=== PATIENT | female | born 1940 | race Two or more races ===

== ENCOUNTER → 2016-05-03 | Outpatient (CLI) | payer MEDICARE, OTHER ==
[~2016-05-03] MED LIST: ACET500C5 PO; ACYC800T57 PO; AMLO5TAB4 PO; ASPI325T32 PO; CLIN-73 PO; DOCU-144 PO; FENO48TA PO; HYDR-902 PO; HYDR-905 PO; IBUP400T22 PO; LISI20TA11 PO; LYRI25 PO; MELO-109 PO; METF500T4 PO; MUPI22OI2 TOP; PANT40TA4 PO; RANI150T5 PO; TRAM50TA2 PO
--- NOTE | 2016-05-03 10:37 | RADRPT ---
PROCEDURE: Limited x-ray of both lower extremities. CLINICAL INDICATION: Bilateral leg pain. TECHNIQUE: Single frontal view of both lower extremities was obtained from the hips to the calves. COMPARISON: None. FINDINGS: There are mild degenerative changes of the hips with osteophytes noted. There are moderate degenera tive changes of both knees with osteophytes and bilateral medial joint compartment narrowing. IMPRESSION: 1. Mild degenerative changes of the hips. 2. Moderate degenerative changes of the knees. RPTAT: QQ .Ronnie Garcia MD, MD Date Time Electronically viewed and signed by .Ronnie Garcia MD, on 05/03/2016 10:37 .R/
== END | disposition home or self-care (01) ==
LOC: HKI 08:56
PROVIDERS: ATTEND Orthopaedic Surgery
DX: Z01.818 Encounter for other preprocedural examination (principal); M17.0 Bilateral primary osteoarthritis of knee
CPT/HCPCS: 77073; G0463

== ENCOUNTER → 2016-05-17 | Outpatient (CLI) | payer MEDICARE, OTHER ==
[~2016-05-17] MED LIST changes: -ACET500C5 PO; -ACYC800T57 PO; -AMLO5TAB4 PO; -CLIN-73 PO; -DOCU-144 PO; -FENO48TA PO; -HYDR-902 PO; -IBUP400T22 PO; -MELO-109 PO; -MUPI22OI2 TOP; -RANI150T5 PO
--- NOTE | 2016-05-17 11:49 | RADRPT ---
PROCEDURE: XR right knee. CLINICAL INDICATION: Knee pain. TECHNIQUE: AP and lateral weightbearing views are available for review. COMPARISON: 05/07/2016 FINDINGS: There is a total knee replacement. There is no evidence of loosening of the prosthesis. The osseous structures are normal in mineralization, architecture and alignment No acute fracture or dislocation is seen.No osseous lesions are identified. The soft tissues are unremarkable . IMPRESSION: Unremarkable total knee replacement. RPTAT: HGDB .Oscar Gomez MD, MD Date Time Electronically viewed and signed by .Oscar Gomez MD, MD on 05/17/2016 11:49 .B/
== END | disposition home or self-care (01) ==
LOC: HKI 10:05
PROVIDERS: ATTEND Orthopaedic Surgery
DX: Z47.1 Aftercare following joint replacement surgery (principal); Z96.651 Presence of right artificial knee joint
CPT/HCPCS: 73560; G0463

== ENCOUNTER → 2016-06-12 | Outpatient (CLI) | payer MEDICARE, OTHER | END | disposition home or self-care (01) | LOC: HKI 10:09 | PROVIDERS: ATTEND Orthopaedic Surgery | DX: Z47.1 Aftercare following joint replacement surgery (principal); M17.11 Unilateral primary osteoarthritis, right knee; Z96.651 Presence of right artificial knee joint | CPT/HCPCS: G0463 ==

== ENCOUNTER → 2016-08-21 | Outpatient (CLI) | payer MEDICARE, OTHER ==
--- NOTE | 2016-08-21 11:00 | RADRPT ---
PROCEDURE: XR right knee. CLINICAL INDICATION: Knee pain. TECHNIQUE: AP weightbearing, lateral weightbearing and sunrise views are available for review. COMPARISON: 05/17/2016 FINDINGS: There is a total knee replacement. There is no evidence of loosening of the prosthesis. There is no evidence of hardware failure. The osseous structures are normal in mineralization, architecture and alignment No acute fracture or dislocation is seen.No osseous lesions are identified. The soft tiss ues are unremarkable . IMPRESSION: Unremarkable total knee replacement. RPTAT: HGDB .Oscar Gomez MD, MD Date Time Electronically viewed and signed by .Oscar Gomez MD, MD on 08/21/2016 10:59 .B/
== END | disposition home or self-care (01) ==
LOC: HKI 10:08
PROVIDERS: ATTEND Orthopaedic Surgery
DX: Z09 Encounter for follow-up examination after completed treatment for conditions other than malignant neoplasm (principal); Z96.651 Presence of right artificial knee joint; M17.12 Unilateral primary osteoarthritis, left knee
CPT/HCPCS: G0463

== ENCOUNTER 2018-09-06 10:27 | Emergency (ER) | payer MEDICARE, OTHER ==
[~2018-09-06] VITALS: Wt 60.0 kg
[~2018-09-06 10:27] MED LIST changes: +HYDR-4012 PO; -HYDR-905 PO; +LISI-471 PO; -LISI20TA11 PO; +METF-849 PO; -METF500T4 PO
[2018-09-06] MEDS ORDERED: LISI-471 PO (11:28)
[2018-09-06] MEDS ORDERED: ALBUTEROL 0.083% (NEB) 2.5 MG/3 ML AMP HHN STA (11:28)
[2018-09-06] MEDS ORDERED: SODIUM CHLORIDE 0.9% 1L BAG IV* STA (11:28)
[2018-09-06] MEDS ORDERED: METF500T24 PO (11:29)
[2018-09-06] MEDS ORDERED: ATOR20TA38 PO (11:29)
[2018-09-06] MEDS ORDERED: ERGO500013 PO (11:30)
[2018-09-06] MEDS ORDERED: CEFTRIAXONE 1 GM/50 ML (PMX) 50 ML IVPB ONE (11:30)
[2018-09-06] MEDS ORDERED: IPRATROPIUM (NEB) 0.5 MG/2.5 ML AMP HHN ONE (11:30)
[2018-09-06] MEDS ORDERED: RANI150T5 PO (11:30)
[2018-09-06] MEDS ORDERED: AZITHROMYCIN 500MG/NS (PMX) 250 ML IVPB ONE (11:30)
[2018-09-06] MEDS ORDERED: ACETAMINOPHEN 325 MG TAB PO ONE (13:30)
[2018-09-06] MEDS ORDERED: BENZONATATE 100 MG CAP PO ONE (13:30)
[2018-09-06 13:57] VITALS: BP 158/73; PULSE 66; RESP 16
[2018-09-06] MEDS ORDERED: CEPH-443 PO (14:05)
[2018-09-06] MEDS ORDERED: BENZ-6 PO (14:05)
--- NOTE | 2018-09-06 15:06 | ERD ---
ER Documentation Chief Complaint Chief Complaint cough x 4 days HPI Patient is a 78-year-old female with GERD and hypertension who presents with a cough. She has had a persistent cough since . The cough is worse. The patient feels weak all over. The patient has rib pain but no fevers. The patient tried TheraFlu and DayQuil. The patient does have a primary doctor. ROS All systems reviewed and are negative except as per history of present illness. Medications Home Meds Active Scripts Benzonatate* (Tessalon Perle*) 100 Mg Capsule, 100 MG PO TID, #30 CAP Prov:ROMANA CINTRON MD 09/06/18 Cephalexin* (Keflex*) 500 Mg Capsule, 500 MG PO BID for 7 Days, CAP Prov:ROMANA CINTRON MD 09/06/18 Reported Medications Ranitidine Hcl* (Ranitidine Hcl*) 150 Mg Tablet, 150 MG PO HS, #30 TAB 09/06/18 Ergocalciferol (Vitamin D2) (VITAMIN D2) 50,000 Unit Capsule, 34856 UNIT PO Q SUN, CAP 09/06/18 Atorvastatin Calcium* (Atorvastatin Calcium*) 20 Mg Tablet, 20 MG PO QHS, #30 TAB 09/06/18 Metformin Hcl* (Metformin Hcl*) 500 Mg Tablet, 500 MG PO WITH BREAKFAST, #30 TAB 09/06/18 Lisinopril* (Lisinopril*) 20 Mg Tablet, 20 MG PO DAILY, #30 TAB 09/06/18 Discontinued Reported Medications Metformin* (Glucophage*) 500 Mg Tab, 500 MG PO DAILY, #30 TAB 05/07/16 Lisinopril* (Lisinopril*) 20 Mg Tablet, 20 MG PO DAILY, #30 TAB 05/07/16 Discontinued Scripts Hydrocodone/Acetaminophen ([place] 7.5-325 Tablet) 1 Each Tablet, 1 EACH PO Q6 PRN for PAIN LEVEL 6-10, #60 TAB Prov:LEIGHTON PLATT PA-C 05/08/16 Pantoprazole* (Pantoprazole*) 40 Mg Tablet.dr, 40 MG PO BID@06,18 for 30 Days, #60 Prov:LEIGHTON PLATT PA-C 05/08/16 Pregabalin* (Lyrica*) 25 Mg Capsule, 50 MG PO BID for 30 Days, #60 CAP Prov:LEIGHTON PLATT PA-C 05/08/16 Tramadol HCl (Tramadol HCl) 50 Mg Tablet, 50 MG PO Q6 for 30 Days, #60 TAB Prov:LEIGHTON PLATT PA-C 05/08/16 Aspirin (Aspir-Arianna) 325 Mg Tablet.dr, 325 MG PO BID for 42 Days, #84 Prov:LEIGHTON PLATT PA-C 05/08/16 Allergies Allergies: Coded Allergies: No Known Drug Allergies (Verified Allergy, Unknown, 09/06/18) PMhx/Soc History of Surgery: Yes (KNEE, HERNIA X3, RECTAL, BETAHNY, UTERUS, EYE) Anesthesia Reaction: No Hx Neurological Disorder: No Hx Respiratory Disorders: No Hx Cardiac Disorders: Yes (HTN,HLD) Hx Psychiatric Problems: No Hx Miscellaneous Medical Probl: Yes (DM2, HTN, UTI) Hx Alcohol Use: No Hx Substance Use: No Hx Tobacco Use: No Smoking Status: Never smoker FmHx Family History: diabetes Physical Exam Vitals Vital Signs Date Temp Pulse Resp B/P (MAP) Pulse Ox O2 O2 Flow FiO2 Time Delivery Rate 09/06/18 99.0 66 16 158/73 98 Room Air 13:57 (101) 09/06/18 97.8 76 18 184/85 99 10:30 (118) Physical Exam Const: No acute distress Head: Atraumatic Eyes: Normal Conjunctiva ENT: Normal External Ears, Nose and Mouth. Neck: Full range of motion. No meningismus. Resp: Clear to auscultation bilaterally Cardio: Regular rate and rhythm, no murmurs Abd: Soft, non tender, non distended. Normal bowel sounds Skin: No petechiae or rashes Back: No midline or flank tenderness Ext: No cyanosis, or edema Neur: Awake and alert Psych: Normal Mood and Affect Result Diagram: 09/06/18 1140 09/06/18 1140 Results 24 hrs Laboratory Tests Test 09/06/18 11:29 09/06/18 11:40 09/06/18 11:45 Urine Color YELLOW Urine Clarity SLIGHTLY CLOUDY Urine pH 6.0 Urine Specific [place] 1.010 Urine Ketones NEGATIVE mg/dL Urine Nitrite POSITIVE mg/dL Urine Bilirubin NEGATIVE mg/dL Urine Urobilinogen 1+ mg/dL Urine Leukocyte Esterase 1+ Andrey/ul Urine Microscopic RBC 1 /HPF Urine Microscopic WBC 46 /HPF Urine Hemoglobin NEGATIVE mg/dL Urine Glucose NEGATIVE mg/dL Urine Total Protein NEGATIVE mg/dl White Blood Count 6.0 10^3/ul Red Blood Count 3.96 10^6/ul Hemoglobin 9.8 g/dl Hematocrit 32.2 % Mean Corpuscular Volume 81.3 fl Mean Corpuscular Hemoglobin 24.7 pg Mean Corpuscular 30.4 g/dl Hemoglobin Concent Red Cell Distribution Width 17.7 % Platelet Count 348 10^3/UL Mean Platelet Volume 9.3 fl Immature Granulocytes % 0.300 % Neutrophils % 66.5 % Lymphocytes % 14.2 % Monocytes % 10.5 % Eosinophils % 7.8 % Basophils % 0.7 % Nucleated Red Blood Cells % 0.0 /100WBC Immature Granulocytes # 0.020 10^3/ul Neutrophils # 4.0 10^3/ul Lymphocytes # 0.9 10^3/ul Monocytes # 0.6 10^3/ul Eosinophils # 0.5 10^3/ul Basophils # 0.0 10^3/ul Nucleated Red Blood Cells # 0.0 10^3/ul Prothrombin Time 14.6 Sec Prothrombin Time Ratio 1.1 INR International 1.13 Normalized Ratio Activated Partial Thromboplast 29.8 Sec Time Sodium Level 142 mmol/L Potassium Level 3.9 mmol/L Chloride Level 106 mmol/L Carbon Dioxide Level 29 mmol/L Anion Gap 7 Blood Urea Nitrogen 11 mg/dl Creatinine 0.63 mg/dl Est Glomerular Filtrat mL/min Rate mL/min Glucose Level 113 mg/dl Calcium Level 9.0 mg/dl Total Bilirubin 0.5 mg/dl Direct Bilirubin 0.00 mg/dl Indirect Bilirubin 0.5 mg/dl Aspartate Amino Transf (AST/SGOT) 32 IU/L Alanine 22 IU/L Aminotransferase (ALT/SGPT) Alkaline Phosphatase 87 IU/L Troponin I < 0.012 ng/ml Total Protein 7.0 g/dl Albumin 3.9 g/dl Globulin 3.10 g/dl Albumin/Globulin Ratio 1.25 POC Venous Lactate 0.9 mmol/L Current Medications Medications Dose Sig/Shanika Start Time Status Last (Trade) Ordered Route PRN Stop Time Admin Dose Reason Admin Sodium 1,800 ml BOLUS OVER 2 09/06/18 DC 09/06/18 Chloride HOURS STAT 11:28 09/06/18 11:41 (NS) IV* 11:31 Albuterol 5 mg ONCE STAT 09/06/18 DC 09/06/18 (Proventil HHN 11:28 09/06/18 12:55 0.083% (Neb)) 11:31 Ipratropium 0.5 mg ONCE ONCE 09/06/18 DC 09/06/18 [place] HHN 11:30 09/06/18 12:54 (Atrovent 11:31 0.02% (Neb)) Ceftriaxone 50 ml @ ONCE ONCE 09/06/18 DC 09/06/18 Sodium 100 mls/hr IVPB 11:30 09/06/18 11:42 11:59 Azithromycin 250 ml @ ONCE ONCE 09/06/18 DC 09/06/18 250 mls/hr IVPB 11:30 09/06/18 12:04 12:29 Benzonatate 200 mg ONCE ONCE 09/06/18 DC 09/06/18 (Tessalon) PO 13:30 09/06/18 13:25 13:31 650 mg ONCE ONCE 09/06/18 DC 09/06/18 Acetaminophen PO 13:30 09/06/18 13:25 (Tylenol 13:31 Tab) Procedures/MDM EKG read by me: Rate/Rhythm: Regular rate and rhythm at a normal rate Intervals: Normal Impression: No evidence of ischemia or arrhythmia Chest x-ray negative for pneumonia or pneumothorax per radiology. Patient is a 78-year-old female who presents with cough. Laboratory studies were done and patient was found to have acute cystitis. Chest x-ray was negative for pneumonia or pneumothorax. At this point I doubt acute coronary syndrome, pneumonia, pneumothorax, pulmonary embolism, or aortic dissection. I would like to have admitted the patient for IV antibiotics for cystitis and the patient had been given ceftriaxone and Zithromax empirically. However she does not want to stay in the hospital and would prefer to go home at this time. She is ambulating on her own. She will be discharged with a prescription for Keflex and Tessalon. She will need to follow-up closely with her primary doctor within 24 to 48 hours. She can return for any worsening symptoms. Departure Diagnosis: Primary Impression: Cough Additional Impression: Urinary tract infection Urinary tract infection type: acute cystitis Hematuria presence: without hematuria Qualified Codes: N30.00 - Acute cystitis without hematuria Condition: Fair Patient Instructions: Understanding Urinary Tract Infections (UTIs), Cough, Chronic, Uncertain Cause, (Adult) Referrals: ASHOK HUSSEIN MD (PCP) Additional Instructions: Call your primary care doctor TOMORROW for an appointment during the next 1-2 days.See the doctor sooner or return here if your condition worsens before your appointment time. ROMANA CINTRON MD Sep 06, 2018 15:06
== END 2018-09-06 13:57 | disposition home or self-care (01) ==
LOC: E/R 10:27
DX: R05 Cough (principal); I10 Essential (primary) hypertension; E11.9 Type 2 diabetes mellitus without complications; N30.00 Acute cystitis without hematuria; R07.89 Other chest pain; Z79.82 Long term (current) use of aspirin; Z79.84 Long term (current) use of oral hypoglycemic drugs
CPT/HCPCS: 36415; 71045; 80053; 81001; 83605; 84484; 85025; 85610; 85730; 87040; 87086; 93005; 96374; 96375; 99285; J0456; J0696; J7030

== ENCOUNTER 2018-12-07 22:15 | Emergency (ER) | payer MEDICARE, OTHER ==
[~2018-12-07] VITALS: Ht 152.4 cm; Wt 57.0 kg
[~2018-12-07 22:15] MED LIST changes: -ASPI325T32 PO; +ATOR20TA38 PO; +BENZ-6 PO; +CEPH-443 PO; +CYCL10TA7 PO; +ERGO500013 PO; -HYDR-4012 PO; +IBUP-1561 PO; -LYRI25 PO; -METF-849 PO; +METF500T24 PO; -PANT40TA4 PO; +RANI150T5 PO; -TRAM50TA2 PO
[2018-12-07 22:26] VITALS: BP 148/76; PULSE 84; RESP 18; Ht 152.4 cm; Wt 57.0 kg
[2018-12-07] MEDS ORDERED: KETOROLAC 30 MG INJ IM STA (23:59)
[2018-12-08] MEDS ORDERED: DIAZEPAM 5 MG TAB PO ONE
== END 2018-12-08 01:55 | disposition home or self-care (01) ==
LOC: FTE 22:15
DX: M54.2 Cervicalgia (principal); I10 Essential (primary) hypertension; E11.9 Type 2 diabetes mellitus without complications; Z79.84 Long term (current) use of oral hypoglycemic drugs
CPT/HCPCS: 72125; 96372; 99285; J1885